=== PATIENT | female | born 1980 | race Caucasian/White ===

== ENCOUNTER 2021-06-30 10:20 | Emergency (ER) | payer OTHER, SELFPAY ==
[2021-06-30 10:37] VITALS: BP 139/70; PULSE 80; RESP 20; TEMP 36.8; O2SAT 97; BMI 30.9
[2021-06-30 10:51] VITALS: PULSE 79; O2SAT 98
[2021-06-30] MEDS: Albuterol Sulfate (0.083%) 2.5 MG/3 ML VIAL.NEB INHALE (10:51)
--- NOTE | 2021-06-30 11:19 | ED_ITS ---
HPI - SOB/Dyspnea General Chief Complaint: Dyspnea Stated Complaint: COUGH DIFF BREATHING Time Seen by Provider: 06/30/21 10:48 Source: patient Mode of arrival: ambulatory Limitations: no limitations History of Present Illness HPI Narrative: 41-year-old female who presents emergency department for evaluation of cough shortness of breath chest pain, headache and sore throat x1 week. Patient states that she has a history of asthma and gets frequent bronchitis. She states the past week she has had a cough which is productive of thick yellow sputum with no blood in the sputum. She has been experiencing chest tightness. She points to his sternum when asked to localize the tightness. She states that is [id number] in intensity, worse with coughing worse with breathing. She has shortness of breath and dyspnea on exertion. She has been using her albuterol inhaler frequently with no relief of her shortness of breath. She denied fever or chills but states she is feeling very fatigued. She also complains of a headache and sore throat. Patient states that she had a negative COVID-19 test 3 days prior at a local [facility] pharmacy. The patient received the 2 shot Pfizwer vaccine with her 2nd shot being in February 2021. Related Data Previous Rx's Medication Instructions Recorded azithromycin 250 mg tablet See Rx Instructions .ROUTE 06/30/21 (Zithromax Z-Pollo) .COMPLEX #6 tab prednisone 20 mg tablet 60 mg PO DAILY 5 Days #15 tab 06/30/21 Allergies Allergy/AdvReac Type Severity Reaction Status Date / Time codeine Allergy Unknown Verified 06/30/21 10:37 Review of Systems Review of Systems: Yes all other systems are reviewed and are negative [facility] Past Medical History [facility] Narrative: Past medical history: Hyperlipidemia, asthma. Social history: The patient smokes 1/2 pack of cigarettes per day times 20 years. Patient kg will drinks alcohol. She denies drug use. Social History Social History Advance Directives: No Patient : No Physical Exam Vital Signs: Vital Signs: Last Vital Signs Temp 98.3 F 06/30/21 10:37 Pulse 79 06/30/21 10:51 Resp 20 06/30/21 10:37 BP 139/70 06/30/21 10:37 Pulse Ox 97 06/30/21 10:37 Body Mass Index 30.9 Const: General: cooperative and no acute distress Orientat ion/consciousness: oriented to person and oriented to place Limitations: no limitations HENMT: Head: Yes normal to inspection, Yes normocephalic and Yes atraumatic Ears: external ears normal General nose exam: Normal external nose present Face and sinus: Yes normal facial exam Mouth: Normal oral and palatal mucosa present Throat: Yes posterior oropharynx normal Eyes: General: appearance normal, both eyes and all related structures Pupils: Equal, round and reactive pupils present Neck: Neck: Yes normal visual inspection, Yes no lymphadenopathy, Yes trachea midline and Yes supple Chest: Chest palpation & inspection: normal inspection of the chest and tenderness sternum Resp: Effort & Inspection: normal respiratory effort and able to speak in complete sentences Auscultation: wheezes (Diffuse wheezing at the end of expiration) Cardio: Rate: regular rate Rhythm: regular rhythm Heart sounds: S1 normal heart sound present, S2 normal heart sound present and no murmurs GI: Inspection: Yes normal to inspection Palpation (GI): Soft to palpation, nontender and no guarding Auscultation: normal bowel sounds : General: Yes no CVA tenderness Back/Spine/Pelvis: Back: no CVA tenderness Skin: General skin exam: no rashes or lesions noted Neuro: General: oriented to person and oriented to place Cranial nerves: Yes CN's II-XII intact bilaterally and Yes Equal, round and reactive pupils present Cognition (Neuro): normal cognition Motor exam (neuro): 5/5 motor strength present throughout Extrem: General: Yes normal to inspection Psych: Appearance: grossly normal Speech and movement: Normal speech and movement present Affect: normal affect Attitude: cooperative Thought process: Normal thought process present Thought content: Normal thought content present Course Course Course Narrative: 41-year-old female with a history of asthma who presents [facility] for evaluation of 1 week of productive cough, chest tightness, shortness of breath, fatigue sore throat headache. The patient has been vaccinated for COVID-19 and had a negative COVID-19 test 3 days prior. The patient has been using her albuterol inhaler more frequently with no relief for shortness of breath . Vital signs were normal. Lung exam did reveal diffuse wheezing. Patient does have sternal chest wall tenderness. The patient was treated with an albuterol nebulizer with some improvement of her symptoms. Patient's presentation is consistent with acute bronchitis causing a flare-up of her asthma. Patient was given prednisone 60 mg orally and azithromycin 500 mg orally. She was prescribed prednisone 60 mg once a day for 5 days and Zithromax Z-Pollo. She was discharged home with printed and verbal instructions. Discharge Plan Discharge Clinical Impression: Bronchitis Asthma with exacerbation Qualifiers: Asthma severity: moderate Asthma persistence: persistent Qualified Code(s): J45.41 - Moderate persistent asthma with (acute) exacerbation Patient Disposition: Home, Self-Care Instructions: Acute Bronchitis (ED) Additional Instructions: Take prednisone 20 mg pills, 3 pills once a day for 5 days. You received your 1st dose today. Take your next dose tomorrow at noon time Take Zithromax (azithromycin) CPAP as prescribed. He received her 1st dose today. Take your next dose tomorrow at around noon time. Continue to use your albuterol inhaler 2 puffs every 4 hours as needed for shortness of breath. Do not take ibuprofen while you taking prednisone. Take Tylenol (acetaminophen) 500 mg pills, 2 pills every 4 to 6 hours as needed for pain. Follow-up with your doctor in 2 days. Please return to the emergency department if your symptoms get worse or if you develop any symptoms that are concerning to you. Prescriptions: New azithromycin [Zithromax Z-Pollo] 250 mg tablet See Rx Instructions .ROUTE .COMPLEX Qty: 6 RF: 0 prednisone 20 mg tablet 60 mg PO DAILY 5 Days Qty: 15 RF: 0
[2021-06-30] MEDS: Azithromycin 500 MG TABLET PO (11:23)
[2021-06-30] MEDS: predniSONE 20 MG TABLET 60 MG PO (11:23)
== END 2021-06-30 11:47 | disposition home or self-care (01) ==
PROVIDERS: Emergency Provider Emergency Medicine Emergency Medical Services; PCP Physician Assistant Medical
DX: J45.41 Moderate persistent asthma with (acute) exacerbation (principal); J40 Bronchitis, not specified as acute or chronic; Z79.899 Other long term (current) drug therapy
CPT/HCPCS: 94640; 99282; 99284